=== PATIENT | male | born 1940 | race Two or more races ===

== ENCOUNTER 2024-01-28 08:17 | Inpatient (IN) ==
[2024-01-28] MEDS: Norepinephrine 4 MG/250mL NS 4,000 MCG/250 ML BAG IV SCH (08:30)
[2024-01-28 08:41] LABS: Hematocrit 27.9 % (38-53); Hemoglobin 8.8 g/dL (13.2-16.3); Mean Corpuscular Hemoglobin 32.1 pg (27-33); Mean Corpuscular Hgb Conc 31.6 g/dL (31-36); Mean Corpuscular Volume 101.5 fL (80-97); Platelet Count 228 10^3/uL (150-450); Red Blood Count 2.75 10^6/uL (4.06-5.63); Red Cell Distribution Width 14.5 % (12-17); White Blood Count 14.3 10^3/uL (3.6-10.2)
[2024-01-28 09:02] LABS: Activated Partial Thrombo Time 82.9 seconds (26.0-38.0); INR 1.27 (0.83-1.13)
[2024-01-28 09:05] LABS: Urine Appearance Extra Turbid; Urine Bacteria 1+ /HPF (Absent); Urine Bilirubin Negative (Negative); Urine Blood 2+ (Negative); Urine Glucose Negative (Negative); Urine Ketones Trace (Negative); Urine Nitrite Negative (Negative); Urine Protein 2+ (>=100 mg/dL) (Negative); Urine Red Blood Cell 3+(>10/hpf) /HPF (0-Trace); Urine Specific Gravity 1.014 (1.002-1.030); Urine Urobilinogen Negative (Negative); Urine White Blood Cell 3+(>20/hpf) /HPF (0-Trace)
[2024-01-28 09:06] LABS: Urine Color Yellow
[2024-01-28] MEDS: Iodixanol (CONTRAST) 320 MG/ML 100 ML SDV IV ONE (09:27)
[2024-01-28 09:29] LABS: Albumin 2.6 g/dL (3.2-5.2); Calcium 8.8 mg/dL (8.6-10.3); Creatinine, Serum 0.99 mg/dL (0.67-1.17); Globulin 2.6 g/dL (2-4); Magnesium 2.1 mg/dL (1.9-2.7); Potassium 3.5 mmol/L (3.5-5.0); Total Bilirubin 0.5 mg/dL (0.2-1.0); Total Protein 5.2 g/dL (6.4-8.9); eGFR CKD-EPI 74.7 (>60)
[2024-01-28] MEDS: Lactated Ringers 1000 ml BAG 1,000 ML IV ONE ×2 (09:31→10:17)
[2024-01-28 09:32] LABS: ABS Eosinophils 0.1 10^3/uL (0.0-0.5); ABS Lymphocytes 6.7 10^3/uL (1.0-4.8); ABS Monocytes 0.5 10^3/uL (0.0-1.1); ABS Nucleated RBC 0.03 10^3/ul; Eosinophil % 0.5 %; Lymphocyte % 47.1 %; Macrocytosis 1+; Nucleated Red Blood Cells % 0.2 %/100WBC (0.0-0.8)
[2024-01-28 10:03] LABS: High Sensitivity Troponin 1 Hr 204 pg/mL (<20)
[2024-01-28] MEDS: cefTRIAXone 2 gm/50 mL D5W 2 GM/50 ML BAG IV ONE (10:17)
[2024-01-28 10:54] LABS: Resp Rate 18
[2024-01-28] MEDS: Vancomycin 1,250 MG in NS 0.9% 250 ml 250 ML IVPB ONE (10:55)
[2024-01-28 10:56] LABS: PCO2 Arterial 40 mmHg (35-45); PO2 Arterial 376 mmHg (80-100)
[2024-01-28] MEDS ORDERED: Zosyn per Pharmacy NOTE FOLLOW UP SCH (12:00)
[2024-01-28] MEDS: Piperacillin/Tazobac 3.375 BAG 3.375 GM/100 ML BAG IV ONE (12:27)
[2024-01-28 12:29] LABS: Hemoglobin 10.9 g/dL (13.2-16.3); Mean Corpuscular Hemoglobin 30.4 pg (27-33); Mean Corpuscular Volume 97.8 fL (80-97); Mean Platelet Volume 6.6 fL (7.5-11.2); Platelet Count 312 10^3/uL (150-450); Red Blood Count 3.58 10^6/uL (4.06-5.63); Red Cell Distribution Width 14.2 % (12-17); White Blood Count 26.8 10^3/uL (3.6-10.2)
[2024-01-28 13:17] LABS: ABS Basophils 0.1 10^3/uL (0.0-0.1); ABS Lymphocytes 3.1 10^3/uL (1.0-4.8); ABS Monocytes 0.4 10^3/uL (0.0-1.1); ABS Neutrophils 23.3 10^3/uL (1.5-7.6); ABS Nucleated RBC 0.03 10^3/ul; Lymphocyte % 11.6 %; Nucleated Red Blood Cells % 0.1 %/100WBC (0.0-0.8); RBC Morphology Normal (Normal)
[2024-01-28 13:50] LABS: Erythrocyte Sed Rate 34 mm/Hr (0-19)
[2024-01-28 14:32] LABS: TSH Ultra Thyroid Stim Horm 7.35 mcIU/mL (0.34-5.60)
[2024-01-28 14:34] LABS: Albumin 3.1 g/dL (3.2-5.2); C Reactive Protein 32.79 mg/L (<8.01); Calcium 8.1 mg/dL (8.6-10.3); Creatinine, Serum 1.21 mg/dL (0.67-1.17); Globulin 3.1 g/dL (2-4); Magnesium 2.4 mg/dL (1.9-2.7); Phosphorus 9.4 mg/dL (2.5-5.0); Potassium 5.2 mmol/L (3.5-5.0); Total Bilirubin 1.3 mg/dL (0.2-1.0); Total Protein 6.2 g/dL (6.4-8.9); eGFR CKD-EPI 58.7 (>60)
[2024-01-28] MEDS: Norepinephrine 4 MG/250mL D5W 4,000 MCG/250 ML BAG IV ONE (15:07)
[2024-01-28 16:15] VITALS: BP 130/100
[2024-01-28] MEDS: Atropine 0.1 MG/ML 10 ml SYR (1 mg) IV PUSH ONE (16:20)
[2024-01-28] MEDS ORDERED: ZOSYN 3.375 GM Q8H per EXTENDED INFUSION IV SCH (16:30)
[2024-01-28] MEDS: Atropine 0.1 MG/ML 10 ml SYR (1 mg) ONE (18:18)
== END 2024-01-28 16:30 | disposition expired | DRG 298 ==
LOC: ED 08:17 → EDHOLD 11:27 → ICU 11:36
PROVIDERS: ADMIT Internal Medicine Pulmonary Disease; ATTEND Internal Medicine Pulmonary Disease